=== PATIENT | female | born 1940 | race Caucasian/White ===

== ENCOUNTER → 2021-01-18 | Outpatient (CLI) | payer MEDICARE ==
[~2021-01-18] MED LIST: ALLERGY10 M1 PO; ATORVASTATIN CA10 MG PO; ATORVASTATIN CA40 MG PO; COLACE100 MG PO; COREG 3.125M3.125 MG PO; COREG6.25 MG PO; DOCUSATE SODIU100 MG PO; DULCOLAX5 MG PO; ELIQUIS 5 MG TAB5 MG PO; FUROSEMIDE20 MG PO; GLIPIZIDE ER10 MG PO; GLUCOTROL XL10 MG PO; LACTULOSE20 GM/30 M PO; LEVEMIR FL100 UNIT/1 SQ; LEVEMIR100 UNIT/1 SQ; LEVOTHYROXINE175 MCG PO; LISINOPRIL20 MG PO; MECLIZINE HCL25 MG PO; NEURONTIN 300300 MG PO; NEURONTIN300 MG PO; ONDANSETRON HCL4 MG PO; PANTOPRAZOLE SO40 MG PO; PHENERGAN 25 MG25 M1 PO; PROTONIX40 MG PO; SPIRONOLACTONE25 MG PO; SPIRONOLACTONE50 MG PO; SYNTHROID137 MCG PO; TRAMADOL HCL50 MG PO
== END ==
LOC: LAB 15:49
PROVIDERS: Internal Medicine Cardiovascular Disease
DX: R06.02 Shortness of breath (principal); R60.0 Localized edema; J98.4 Other disorders of lung
CPT/HCPCS: 71046; 80053; 83880

== ENCOUNTER 2021-03-13 10:07 | Emergency (ER) | payer MEDICARE ==
[~2021-03-13 10:07] MED LIST changes: -LACTULOSE20 GM/30 M PO
[2021-03-13 11:17] LABS: RED BLOOD COUNT 4.48 M/UL (4.00-5.10); WHITE BLOOD COUNT 5.9 K/UL (4.5-11.0)
[2021-03-13] MEDS ORDERED: LACTULOSE20 GM/30 M PO (12:23)
== END 2021-03-13 12:48 | disposition home or self-care (01) ==
LOC: ER1 10:07
PROVIDERS: Family Medicine
DX: K59.00 Constipation, unspecified (principal); B35.4 Tinea corporis; E11.9 Type 2 diabetes mellitus without complications; K21.9 Gastro-esophageal reflux disease without esophagitis; E78.5 Hyperlipidemia, unspecified; Z88.0 Allergy status to penicillin; Z79.4 Long term (current) use of insulin
CPT/HCPCS: 80053; 83690; 84439; 84443; 85025; 99284

== ENCOUNTER → 2021-08-24 | Outpatient (CLI) | payer MEDICARE ==
[~2021-08-24] MED LIST changes: +LACTULOSE20 GM/30 M PO
[2021-08-24 17:07] LABS: HEMOGLOBIN 11.2 gm/dl (12.3-15.3); RED BLOOD COUNT 4.08 M/UL (4.00-5.10); WHITE BLOOD COUNT 4.9 K/UL (4.5-11.0)
[2021-08-26 07:10] LABS: VITAMIN D, 25-HYDROXY 19.1 ng/mL (30.0-100.0)
[2021-08-26 10:14] LABS: CREATININE, URINE 101.4 mg/dL (Not Estab.)
== END ==
LOC: LBRF 16:37
PROVIDERS: Nurse Practitioner Family
DX: I11.0 Hypertensive heart disease with heart failure (principal); E78.5 Hyperlipidemia, unspecified; I50.20 Unspecified systolic (congestive) heart failure; E03.9 Hypothyroidism, unspecified; E11.9 Type 2 diabetes mellitus without complications
CPT/HCPCS: 80053; 80061; 81001; 82043; 82570; 82607; 83036; 83880; 84439; 84443; 84481; 85025

== ENCOUNTER 2021-10-26 18:40 | Emergency (ER) | payer MEDICARE ==
[2021-10-26 21:00] LABS: HEMOGLOBIN 11.3 gm/dl (12.3-15.3); RED BLOOD COUNT 4.13 M/UL (4.00-5.10); WHITE BLOOD COUNT 3.9 K/UL (4.5-11.0)
[2021-10-26 21:27] LABS: BUN/CREATININE RATIO 12 (0-10)
[2021-10-27] MEDS ORDERED: PROVENTIL HFA6.7 GM INH (00:57)
[2021-10-27] MEDS ORDERED: ZOFRAN ODT 4 MG4 MG PO (00:57)
== END 2021-10-27 01:00 | disposition home or self-care (01) ==
LOC: ER1 18:40
PROVIDERS: Physician Assistant
DX: U07.1 COVID-19 (principal); E78.5 Hyperlipidemia, unspecified; E11.9 Type 2 diabetes mellitus without complications; I10 Essential (primary) hypertension; Z90.49 Acquired absence of other specified parts of digestive tract; Z88.0 Allergy status to penicillin
CPT/HCPCS: 80053; 85025; 99284; U0002

== ENCOUNTER 2021-11-07 14:19 | Inpatient (IN) | payer MEDICARE, MEDICAID ==
[~2021-11-07] VITALS: Ht 157.5 cm; Wt 99.4 kg
[~2021-11-07 14:19] MED LIST changes: -FUROSEMIDE20 MG PO; -GLIPIZIDE ER10 MG PO; -LEVOTHYROXINE175 MCG PO; +PROVENTIL HFA6.7 GM INH; +ZOFRAN ODT 4 MG4 MG PO
[2021-11-07 15:04] LABS: RED BLOOD COUNT 4.37 M/UL (4.00-5.10)
[2021-11-07 15:29] LABS: BUN/CREATININE RATIO 13 (0-10)
[2021-11-07] MEDS ORDERED: LEVEMIR100 UNIT/1 SQ (19:21)
[2021-11-07] MEDS ORDERED: FERROUS GLUCON240 MG PO (19:24)
[2021-11-07] MEDS ORDERED: DULCOLAX STOOL100 MG PO (19:25)
[2021-11-07] MEDS ORDERED: LEVOTHYROXINE175 MCG PO (20:57)
[2021-11-07] MEDS ORDERED: GLIPIZIDE ER10 MG PO (20:57)
[2021-11-07] MEDS ORDERED: FUROSEMIDE40 MG PO (21:02)
--- NOTE | 2021-11-07 23:19 | NUR ---
NOTIFIED DR GARDNER TO RESUME HOME MEDS. RECIEVED NO NEW ORDERS. WILL CONTINUE TO MONITOR.
[2021-11-08 03:37] LABS: HEMOGLOBIN 11.5 gm/dl (12.3-15.3); RED BLOOD COUNT 4.21 M/UL (4.00-5.10)
[2021-11-08 03:50] LABS: WHITE BLOOD COUNT 7.2 K/UL (4.5-11.0)
[2021-11-09 05:02] LABS: HEMOGLOBIN 10.6 gm/dl (12.3-15.3); RED BLOOD COUNT 3.88 M/UL (4.00-5.10); WHITE BLOOD COUNT 5.5 K/UL (4.5-11.0)
[2021-11-10] MEDS ORDERED: CEFUROXIME500 MG PO (10:57)
[2021-11-10] MEDS ORDERED: PROAIR HFA8.5 GM INH (10:57)
== END 2021-11-10 15:25 | disposition home health service (06) | DRG 177 ==
LOC: ER1 14:19 → CDU 17:40 → MED SURG 4 17:40
PROVIDERS: ADMIT Internal Medicine
PROC: 3E03329 Introduction of Other Anti-infective into Peripheral Vein, Percutaneous Approach (ICD-10-PCS; principal; 2021-11-07)
PROC: B24BZZZ Ultrasonography of Heart with Aorta (ICD-10-PCS; 2021-11-08)
DX: U07.1 COVID-19 (principal); J12.82 Pneumonia due to coronavirus disease 2019; I50.33 Acute on chronic diastolic (congestive) heart failure; Z68.41 Body mass index [BMI] 40.0-44.9, adult; I48.0 Paroxysmal atrial fibrillation; D64.9 Anemia, unspecified; I11.0 Hypertensive heart disease with heart failure; E11.9 Type 2 diabetes mellitus without complications; E03.9 Hypothyroidism, unspecified; I08.3 Combined rheumatic disorders of mitral, aortic and tricuspid valves; I45.81 Long QT syndrome; R53.81 Other malaise; I16.0 Hypertensive urgency; E87.6 Hypokalemia; E66.01 Morbid (severe) obesity due to excess calories; Z79.01 Long term (current) use of anticoagulants; Z79.4 Long term (current) use of insulin; Z90.49 Acquired absence of other specified parts of digestive tract; Z88.0 Allergy status to penicillin; Z88.2 Allergy status to sulfonamides; Z83.6 Family history of other diseases of the respiratory system
CPT/HCPCS: ECHO; 36415; 36600; 71045; 80053; 82550; 82553; 82803; 82962; 83036; 83605; 83690; 83735; 83874; 83880; 84132; 84439; 84443; 84484; 85025; 85027; 87040; 93005; 93306; 94640; 94664; 94760; 96372; 96374; 96375; 97116-GP-CQ; 97162; 97166; 97530; 97530-GP-CQ; 99285; J0360; J0456; J0696; J1650; J1940; J2405; U0002

== ENCOUNTER 2022-03-06 22:11 | Emergency (ER) | payer MEDICARE, OTHER ==
[~2022-03-06 22:11] MED LIST changes: +CEFUROXIME500 MG PO; +DULCOLAX STOOL100 MG PO; +FERROUS GLUCON240 MG PO; +FUROSEMIDE40 MG PO; +GLIPIZIDE ER10 MG PO; +LEVOTHYROXINE175 MCG PO; +PROAIR HFA8.5 GM INH
[2022-03-06 23:18] LABS: HEMOGLOBIN 11.9 gm/dl (12.3-15.3); RED BLOOD COUNT 4.27 M/UL (4.00-5.10); WHITE BLOOD COUNT 5.8 K/UL (4.5-11.0)
[2022-03-06 23:47] LABS: BUN/CREATININE RATIO 18 (0-10)
[2022-03-07] MEDS ORDERED: GLYCERIN1 EACH PR (01:56)
== END 2022-03-07 05:10 | disposition home or self-care (01) ==
LOC: ER1 22:11
PROVIDERS: Student in an Organized Health Care Education/Training Program
DX: K59.00 Constipation, unspecified (principal); I48.91 Unspecified atrial fibrillation; E11.9 Type 2 diabetes mellitus without complications; I10 Essential (primary) hypertension; Z88.0 Allergy status to penicillin
CPT/HCPCS: 71045; 80053; 81001; 82550; 82553; 84484; 85025; 93005; 99285; Q9967

== ENCOUNTER 2022-04-20 12:23 | Emergency (ER) | payer MEDICARE, MEDICAID ==
[~2022-04-20 12:23] MED LIST changes: +GLYCERIN1 EACH PR
[2022-04-20 18:45] LABS: RED BLOOD COUNT 3.77 M/UL (4.00-5.10); WHITE BLOOD COUNT 7.6 K/UL (4.5-11.0)
[2022-04-20 19:30] LABS: BUN/CREATININE RATIO 13 (0-10)
[2022-04-21] MEDS ORDERED: DULCOLAX STOOL100 MG PO (00:12)
== END 2022-04-21 01:40 | disposition home or self-care (01) ==
LOC: ER1 12:23
PROVIDERS: Physician Assistant
DX: K56.41 Fecal impaction (principal); R11.0 Nausea; I11.0 Hypertensive heart disease with heart failure; I50.9 Heart failure, unspecified; E11.9 Type 2 diabetes mellitus without complications; J45.909 Unspecified asthma, uncomplicated; I48.91 Unspecified atrial fibrillation; Z88.0 Allergy status to penicillin; Z79.84 Long term (current) use of oral hypoglycemic drugs
CPT/HCPCS: 51701; 80053; 81001; 85025; 99284; Q9967

== ENCOUNTER 2022-05-13 05:29 | Emergency (ER) | payer MEDICARE, OTHER ==
[2022-05-13 06:16] LABS: HEMOGLOBIN 13.4 gm/dl (12.3-15.3); RED BLOOD COUNT 5.01 M/UL (4.00-5.10); WHITE BLOOD COUNT 10.6 K/UL (4.5-11.0)
[2022-05-13] MEDS ORDERED: ENULOSE10 GM/15 M PO (06:50)
[2022-05-13] MEDS ORDERED: ZOFRAN 4 MG TAB4 MG PO (06:50)
== END 2022-05-13 08:06 | disposition home or self-care (01) ==
LOC: ER1 05:29
PROVIDERS: Emergency Medicine
DX: K59.00 Constipation, unspecified (principal); I11.0 Hypertensive heart disease with heart failure; I50.9 Heart failure, unspecified; E11.9 Type 2 diabetes mellitus without complications; I48.91 Unspecified atrial fibrillation
CPT/HCPCS: 74018; 80053; 85025; 99284